=== PATIENT | female | born 1975 | race Caucasian/White ===

== ENCOUNTER 2019-03-10 20:22 | Emergency (ER) | payer OTHER ==
[~2019-03-10] VITALS: Ht 175.3 cm; Wt 7038.2 kg
[~2019-03-10 20:22] MED LIST: [UNRECOGNIZED DRUG - OTHER] PO
[2019-03-10] MEDS ORDERED: PRENATAL FORMU1 EAC2 PO (20:58)
[2019-03-10] MEDS ORDERED: MACROBID 100 M100 MG PO (23:33)
== END 2019-03-10 23:56 | disposition home or self-care (01) ==
LOC: ED 20:22
DX: O20.0 Threatened abortion (principal); O23.41 Unspecified infection of urinary tract in pregnancy, first trimester; Z3A.01 Less than 8 weeks gestation of pregnancy
CPT/HCPCS: 36415; 80053; 81001; 84702; 85025; 86900; 86901; 96372; 99284-25; J2790

== ENCOUNTER 2020-08-23 18:44 | Emergency (ER) | payer OTHER ==
[~2020-08-23] VITALS: Ht 175.3 cm; Wt 72.8 kg
[~2020-08-23 18:44] MED LIST changes: +DOXYCYCLINE HY100 MG PO; +IRON325 M1 PO; +MACROBID 100 M100 MG PO; +NORCO 5-325 TA1 EACH PO; +PRENATAL FORMU1 EAC2 PO
--- NOTE | 2020-08-24 11:32 | EKG ---
[facility] [address] [place] [address] Signed Normal sinus rhythm Normal ECG No previous ECGs available Confirmed by JEANIE GREENBERG MD ([id number]) on 08/24/2020 11:32:09 AM Electronically Signed By: JEANIE GREENBERG MD 08/24/20 1132 PATIENT NAME: WEN JETT Electrocardiogram DATE OF : 77 PHYSICIAN: JEANIE GREENBERG MD REPORT #: [id number] REPORT IS CONFIDENTIAL AND NOT TO BE RELEASED WITHOUT AUTHORIZATION
== END 2020-08-23 21:30 | disposition home or self-care (01) ==
LOC: ED 18:44
DX: R00.2 Palpitations (principal); Z88.5 Allergy status to narcotic agent; Z88.6 Allergy status to analgesic agent; Z88.8 Allergy status to other drugs, medicaments and biological substances
CPT/HCPCS: 80053; 83735; 84484; 84703; 85025; 93005; 93010; 99285-25

== ENCOUNTER 2020-08-27 06:27 | Emergency (ER) | payer OTHER ==
[~2020-08-27] VITALS: Ht 175.3 cm; Wt 86.0 kg
--- OUTSIDE RECORDS SUMMARY | 2020-08-27 06:30 | XMS ---
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 Balaji has no Care Guidelines for this patient. Anjelica VISIT COUNT (12 MO.) 2 [facility] TOTAL 2 NOTE: Visits indicate total known visits. ED/[facility] VISIT TRACKING (12 MO.) [facility] COMPLAINT: - NAUSEA, HEART PALPITATIONS, CRAMPED LEGS, CHILLS 08/23/2020 18:44 [facility] [place] TYPE: Emergency COMPLAINT: - IRREGULAR HEART BEAT INPATIENT VISIT TRACKING (12 MO.) No inpatient visits to display in this time frame [email or web address]
[2020-08-27] MEDS ORDERED: MAPAP500 MG PO (06:52)
[2020-08-27] MEDS ORDERED: ONDANSETRON ODT8 MG PO (08:02)
--- NOTE | 2020-08-28 12:36 | EKG ---
[facility] [address] [place], [place] [address] Signed Normal sinus rhythm Normal ECG When compared with ECG of 23-AUG-2020 18:58, No significant change was found Confirmed by RAULITO HASKINS DO ([id number]) on 08/28/2020 12:35:56 PM Electronically Signed By: RAULITO HASKINS DO 08/28/20 1236 PATIENT NAME: WEN JETT Electrocardiogram DATE OF : 77 PHYSICIAN: RAULITO HASKINS DO REPORT #: [id number] REPORT IS CONFIDENTIAL AND NOT TO BE RELEASED WITHOUT AUTHORIZATION
== END 2020-08-27 08:15 | disposition home or self-care (01) ==
LOC: ED 06:27
DX: I49.3 Ventricular premature depolarization (principal); Z88.8 Allergy status to other drugs, medicaments and biological substances; Z88.5 Allergy status to narcotic agent; Z88.6 Allergy status to analgesic agent
CPT/HCPCS: 80053; 81001; 83735; 84443; 84484; 85025; 93005; 93010; 99285-25

== ENCOUNTER 2023-02-22 20:58 | Emergency (ER) | payer OTHER ==
[~2023-02-22] VITALS: Ht 175.3 cm; Wt 84.8 kg
[~2023-02-22 20:58] MED LIST changes: +MAPAP500 MG PO; +ONDANSETRON ODT8 MG PO
[2023-02-22] MEDS ORDERED: OXYCODON-ACETA1 EAC2 PO (22:03)
[2023-02-22 22:23] VITALS: BP 133/82
== END 2023-02-22 22:24 | disposition home or self-care (01) ==
LOC: ED 20:58
DX: Z48.817 Encounter for surgical aftercare following surgery on the skin and subcutaneous tissue (principal); Z88.5 Allergy status to narcotic agent; Z88.6 Allergy status to analgesic agent; Z88.8 Allergy status to other drugs, medicaments and biological substances; Z79.899 Other long term (current) drug therapy
CPT/HCPCS: 99282

== ENCOUNTER 2023-05-22 00:54 | Emergency (ER) | payer OTHER ==
[~2023-05-22] VITALS: Ht 175.3 cm; Wt 91.8 kg
[~2023-05-22 00:54] MED LIST changes: +OXYCODON-ACETA1 EAC2 PO
[2023-05-22] MEDS ORDERED: methylPREDNISolone 4 MG HOME.PACK PO ONE (01:15)
[2023-05-22] MEDS ORDERED: diphenhydrAMINE HCL 50 MG CAP PO ONE (01:15)
[2023-05-22 01:27] VITALS: BP 141/77
== END 2023-05-22 01:28 | disposition home or self-care (01) ==
LOC: ED 00:54
DX: L50.9 Urticaria, unspecified (principal); Z88.8 Allergy status to other drugs, medicaments and biological substances; Z88.5 Allergy status to narcotic agent; Z88.6 Allergy status to analgesic agent; Z79.899 Other long term (current) drug therapy
CPT/HCPCS: 99282; Q0163

== ENCOUNTER 2024-11-23 10:03 | Emergency (ER) | payer OTHER ==
[~2024-11-23] VITALS: Ht 175.3 cm; Wt 85.7 kg
[2024-11-23] MEDS ORDERED: PRILOSEC OTC20 MG PO (10:47)
[2024-11-23 11:16] LABS: BASOPHILS 0.8 % (0.1-1.2); EOSINOPHILS 2.0 % (0.7-5.8); LYMPHOCYTES 18.0 % (19.3-51.7); MCH 29.6 PG (25.6-32.2); MCHC 33.8 g/dL (32.2-35.5); MCV 87.4 fL (79.4-94.8); MONOCYTES 8.7 % (4.7-12.5); NEUTROPHILS 70.1 % (34.0-71.1); RBC 4.70 M/uL (3.93-5.22)
[2024-11-23 11:26] LABS: ALT (SGPT) 30.0 U/L (14-59); AST (SGOT) 41.0 U/L (15-37); GLOMERULAR FILTRATION RATE,EST 86.0 mL/min (>60); PROTEIN, TOTAL 8.3 g/dL (6.4-8.2); UREA NITROGEN 12.0 mg/dL (7-18)
[2024-11-23 11:54] LABS: BLOOD/HGB, URINE NEGATIVE (Negative); KETONE, URINE NEGATIVE (Negative); LEUK ESTERASE, URINE NEGATIVE (negative); NITRITE, URINE NEGATIVE (negative)
[2024-11-23 12:56] VITALS: BP 143/91
== END 2024-11-23 12:59 | disposition home or self-care (01) ==
LOC: ED 10:03
PROVIDERS: Emergency Medicine
DX: R93.7 Abnormal findings on diagnostic imaging of other parts of musculoskeletal system (principal); K58.9 Irritable bowel syndrome, unspecified; Z88.5 Allergy status to narcotic agent; Z88.6 Allergy status to analgesic agent; Z88.8 Allergy status to other drugs, medicaments and biological substances; Z79.899 Other long term (current) drug therapy
CPT/HCPCS: 36415; 74177; 80053; 81003; 83690; 84703; 85025; 99284-25

== ENCOUNTER 2024-11-29 06:23 | Emergency (ER) | payer OTHER ==
[~2024-11-29] VITALS: Ht 175.3 cm; Wt 84.0 kg
[~2024-11-29 06:23] MED LIST changes: +PRILOSEC OTC20 MG PO
[2024-11-29] MEDS ORDERED: AMBIEN CR6.25 MG PO (06:55)
[2024-11-29] MEDS ORDERED: PERCOCET 5-3251 EACH PO (06:55)
[2024-11-29] MEDS ORDERED: ATIVAN1 MG PO (06:55)
[2024-11-29] MEDS ORDERED: OXYCODONE/ACETAMINOPHEN 1 TAB HOME.PACK PO ONE (07:00)
[2024-11-29] MEDS ORDERED: LORazepam 1 MG HOME.PACK PO ONE (07:00)
[2024-11-29 07:27] VITALS: BP 158/89
== END 2024-11-29 07:30 | disposition home or self-care (01) ==
LOC: ED 06:23
DX: M25.851 Other specified joint disorders, right hip (principal); M48.8X6 Other specified spondylopathies, lumbar region; Z88.8 Allergy status to other drugs, medicaments and biological substances; Z88.5 Allergy status to narcotic agent; Z88.6 Allergy status to analgesic agent
CPT/HCPCS: 99283

== ENCOUNTER 2024-12-26 18:57 | Emergency (ER) | payer OTHER ==
[~2024-12-26] VITALS: Ht 175.3 cm; Wt 82.0 kg
[~2024-12-26 18:57] MED LIST changes: +AMBIEN CR6.25 MG PO; +ATIVAN1 MG PO; +PERCOCET 5-3251 EACH PO
[2024-12-26] MEDS ORDERED: HYDROXYZINE HCL25 MG PO (19:19)
[2024-12-26] MEDS ORDERED: ZOLPIDEM TART6.25 MG PO (19:19)
[2024-12-26] MEDS ORDERED: TIZANIDINE HCL2 M1 PO (19:19)
[2024-12-26 22:54] VITALS: BP 131/74
== END 2024-12-26 22:55 | disposition home or self-care (01) ==
LOC: ED 18:57
DX: N64.4 Mastodynia (principal); Z88.8 Allergy status to other drugs, medicaments and biological substances; Z88.5 Allergy status to narcotic agent; Z88.6 Allergy status to analgesic agent; Z79.899 Other long term (current) drug therapy
CPT/HCPCS: 76642; 99283

== ENCOUNTER 2025-01-26 11:36 | Emergency (ER) | payer OTHER ==
[~2025-01-26] VITALS: Ht 175.3 cm; Wt 79.0 kg
--- NOTE | ~2025-01-26 | EKG ---
[facility] [address] [place], [place] [address] Draft EK completed, results pending confirmation PATIENT NAME: WEN JETT MINA Electrocardiogram DATE OF : 77 PHYSICIAN: PRELIMINARY REPORT #: [id number] REPORT IS CONFIDENTIAL AND NOT TO BE RELEASED WITHOUT AUTHORIZATION
--- OUTSIDE RECORDS SUMMARY | ~2025-01-26 | XMS | Continuity of Care Document ---
Demographics + + + | Address | [address] | | | [place] [address] | + + + | Preferred Language | Unknown | + + + | Marital Status | | + + + | Scientologist Affiliation | Unknown | + + + | Race | White | + + + | Ethnic Group | Not or | + + + Author + + + | Author | [facility] | + + + | Organization | [facility] | + + + | Address | [address] | | | [place] [address] | + + + | Phone | | + + + Care Team Providers + + + + | Care Circle Saw Operator Name | Role | Phone | [...] [facility] | | | | [facility] | + + + + | (no date) | OXYCODONE | [facility] | | | HCL/ACETAMINOPHEN | [facility] | + + + + | 2024-11-29 00:00 | OXYCODONE | [facility] | | | HCL/ACETAMINOPHEN | [facility] | + + + + | (no date) | DOXYCYCLINE HYCLATE | [facility] | | | | [facility] | + + + + | (no date) | FERROUS SULFATE | [facility] | | | | [facility] | + + + + | (no date) | TIZANIDINE HCL | [facility] | | | | [facility] | + + + + | 2024-11-29 00:00 | ZOLPIDEM TARTRATE | [facility] | | | | [facility] | + + + + | (no date) | HYDROCODONE | [facility] | | | BIT/ACETAMINOPHEN | [facility] | + + + + | (no date) | hydrOXYzine HCL | [facility] | | | | [facility] | + + + + Problems + + + + | date | description | facility | + + + + | 2024-11-23 00:00 | Abnormal computed | [facility] | | | tomography of spine | [facility] | + + + + | 2024-11-29 00:00 | Lytic bone lesion of hip | [facility] | | | | [facility] | + + + + | 2024-12-26 00:00 | Pain of left breast | [facility] | | | | [facility] | + + + + Procedures No [...] 98 | mg/dL | (missing) | | [facility] | 10:55:07 | [facility] | | | [...] 27 | (missing) | (missing) | | [facility] | 10:55:07 | [facility] | | [...] 4.4 | (missing) | (missing) | | [facility] | 10:55:07 | [facility] | | | [...] 132 | (missing) | (missing) | | [facility] | 10:55:07 | [facility] | | | [...]
[~2025-01-26 11:36] MED LIST changes: +HYDROXYZINE HCL25 MG PO; +TIZANIDINE HCL2 M1 PO; +ZOLPIDEM TART6.25 MG PO
[2025-01-26] MEDS ORDERED: ELIQUIS2.5 MG PO (12:07)
[2025-01-26] MEDS ORDERED: OXYCODONE HCL5 MG PO (12:08)
[2025-01-26] MEDS ORDERED: ACETAMINOPHEN500 M1 PO (12:09)
[2025-01-26] MEDS ORDERED: ONDANSETRON ODT8 MG PO (12:10)
[2025-01-26] MEDS ORDERED: [UNRECOGNIZED DRUG - OTHER] PO (12:11)
[2025-01-26 13:11] LABS: BLOOD/HGB, URINE NEGATIVE (Negative); KETONE, URINE TRACE (Negative); LEUK ESTERASE, URINE NEGATIVE (negative); NITRITE, URINE NEGATIVE (negative)
[2025-01-26 13:14] LABS: ALT (SGPT) 87.0 U/L (14-59); AST (SGOT) 134.0 U/L (15-37); GLOMERULAR FILTRATION RATE,EST 97.0 mL/min (>60); PROTEIN, TOTAL 8.3 g/dL (6.4-8.2); UREA NITROGEN 17.0 mg/dL (7-18)
[2025-01-26 13:34] LABS: BASOPHILS 0.8 % (0.1-1.2); EOSINOPHILS 1.1 % (0.7-5.8); LYMPHOCYTES 16.4 % (19.3-51.7); MCH 28.8 PG (25.6-32.2); MCHC 33.2 g/dL (32.2-35.5); MCV 86.8 fL (79.4-94.8); MONOCYTES 9.3 % (4.7-12.5); NEUTROPHILS 67.9 % (34.0-71.1); RBC 3.85 M/uL (3.93-5.22)
[2025-01-26 13:36] LABS: BACTERIA, URINE 1+ /hpf (negative); CASTS, URINE NONE SEEN \\lpf; CRYSTALS, URINE NONE SEEN (0-1+); REFLEX CULTURE, URINE No (No)
[2025-01-26 16:04] VITALS: BP 140/89
== END 2025-01-26 16:05 | disposition home or self-care (01) ==
LOC: ED 11:36
PROVIDERS: Emergency Medicine
DX: R42 Dizziness and giddiness (principal); R07.89 Other chest pain; Z88.5 Allergy status to narcotic agent; Z88.8 Allergy status to other drugs, medicaments and biological substances; Z79.01 Long term (current) use of anticoagulants; Z79.899 Other long term (current) drug therapy
CPT/HCPCS: 36415; 71045; 80053; 81001; 84484; 85025; 93005; 93010; 99285-25

== ENCOUNTER 2025-02-08 21:37 | Inpatient (IN) | payer OTHER ==
[~2025-02-08] VITALS: Ht 175.3 cm; Wt 82.1 kg
--- OUTSIDE RECORDS SUMMARY | ~2025-02-08 | XMS | Continuity of Care Document ---
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 Encounters No information. Functional Status No information. Immunizations No information. Medications + + + + | date | description | facility | + + + + | 2024-11-29 00:00 | LORAZEPAM | [facility] | | | | [facility] | + + + + | (no date) | OXYCODONE | [facility] | | | HCL/ACETAMINOPHEN | [facility] | + + + + | 2024-11-29 00:00 | OXYCODONE | [facility] | | | HCL/ACETAMINOPHEN | [facility] | + + + + | (no date) | DOXYCYCLINE HYCLATE | [facility] | | | | [facility] | + + + + | (no date) | FERROUS SULFATE | [facility] [place], [place] | | | | [facility] | + + + + | (no date) | TIZANIDINE HCL | [facility] [place] [facility] | | | | [facility] | + + + + | 2024-11-29 00:00 | ZOLPIDEM TARTRATE | [facility] [place] [place] | | | | [facility] | + + + + | (no date) | HYDROCODONE | [facility] [place] [facility] | | | BIT/ACETAMINOPHEN | [facility] | + + + + | (no date) | hydrOXYzine HCL | [facility] [place] [facility] | | | | [facility] | + + + + Problems + + + + | date | description | facility | + + + + | 2024-11-23 00:00 | Abnormal computed | [facility] [place], [place] | | | tomography of spine | [facility] | + + + + | 2024-11-29 00:00 | Lytic bone lesion of hip | [facility] | | | | [facility] | + + + + | 2024-12-26 00:00 | [facility] left breast | [facility] | | | | [facility] | + + + + Procedures No information. Results/Labs +--------+--------+ +---------+--------+---------+ | test | date | facility | value | unit | notes | +--------+--------+ +---------+--------+---------+ + + | Result panel 1 | + + + + + + + + + | Color Ur | 2024-11-23 | | YELLOW | (missing) | (missing) | | Auto | 10:25:07 | [facility] | | | | + + + + + + + + + | Result panel 2 | + + + + + +---------+ + + | Character | 2024-11-23 | | CLEAR | (missing) | (missing) | | Ur | 10:25:07 | [facility] | | | | + + + +---------+ + + + + | Result panel 3 | + + + + + + + + + | Glucose Ur | 2024-11-23 | | NEGATIVE | (missing) | (missing) | | Ql Strip | 10:25:07 | [facility] | | | | + + + + + + + + + | Result panel 4 | + + + + + + + + + | Cecy Glover | 2024-11-23 | | NEGATIVE | (missing) | (missing) | | Ql Strip | 10:25:07 | [facility] | | | | + + + + + + + + + | Result panel 5 | + + + + + + + + + | Ketones Ur | 2024-11-23 | | NEGATIVE | (missing) | (missing) | | Ql Strip | 10:25:07 | [facility] | | | | + + + + + + + + + | Result panel 6 | + + + + + +---------+ + + | Sp Gr Ur | 2024-11-23 | | 1.015 | (missing) | (missing) | | Strip | 10:25:07 | [facility] | | | | + + + +---------+ + + + + | Result panel 7 | + + + + + + + + + | Hgb Ur Ql | 2024-11-23 | | NEGATIVE | (missing) | (missing) | | Strip | 10:25:07 | [facility] | | | | + + + + + + + + + | Result panel 8 | + + + + + +-------+ + + | pH Ur Strip | 2024-11-23 | | 6.0 | (missing) | (missing) | | | 10:25:07 | [facility] | | | | + + + +-------+ + + + + | Result panel 9 | + + + + + + + + + | Prot Ur | 2024-11-23 | | NEGATIVE | (missing) | (missing) | | Strip-mCnc | 10:25:07 | [facility] | | | | + + + + + + + + + | Result panel 10 | + + + + + + + + + | | 2024-11-23 | | NORMAL | (missing) | (missing) | | Urobilinogen | 10:25:07 | [facility] | | | | | Ur [facility] Strip-mCnc | [facility] | | | | + + + + + + + + + | Result panel 11 | + + + + + + + + + | Nitrite Ur | 2024-11-23 | | NEGATIVE | (missing) | (missing) | | Ql Strip | 10:25:07 | [facility] | | | | + + + + + + + + + | Result panel 12 | + + + + + + + + + | Leukocyte | 2024-11-23 | | NEGATIVE | (missing) | (missing) | | esterase Ur | 10:25:07 | [facility] | | | | | Ql Strip [facility] | | | | + + + + + + + + + | Result panel 13 | + + + + + + + + + | Color Ur | 2024-11-23 | | YELLOW | (missing) | (missing) | | Auto | 10:25:07 | [facility] | | | | + + + + + + + + + | Result panel 14 | + + + + + +---------+ + + | Character | 2024-11-23 | | CLEAR | (missing) | (missing) | | Ur | 10:25:07 | [facility] | | | | + + + +---------+ + + + + | Result panel 15 | + + + + + + + + + | Glucose Ur | 2024-11-23 | | NEGATIVE | (missing) | (missing) | | Ql Strip | 10:25:07 | [facility] | | | | + + + + + + + + + | Result panel 16 | + + + + + + + + + | Bilruperto Glover | 2024-11-23 | | NEGATIVE | (missing) | (missing) | | Ql Strip | 10:25:07 | [facility] | | | | + + + + + + + + + | Result panel 17 | + + + + + + + + + | Ketones Ur | 2024-11-23 | | NEGATIVE | (missing) | (missing) | | Ql Strip | 10:25:07 | [facility] | | | | + + + + + + + + + | Result panel 18 | + + + + + +---------+ + + | Sp Gr Ur | 2024-11-23 | | 1.015 | (missing) | (missing) | | Strip | 10:25:07 | [facility] | | | | + + + +---------+ + + + + | Result panel 19 | + + + + + + + + + | Michelle Ur Torie | 2024-11-23 | | NEGATIVE | (missing) | (missing) | | Strip | 10:25:07 | [facility] | | | | + + + + + + + + + | Result panel 20 | + + + + + +-------+ + + | pH Ur Strip | 2024-11-23 | | 6.0 | (missing) | (missing) | | | 10:25:07 | [facility] | | | | + + + +-------+ + + + + | Result panel 21 | + + + + + + + + + | Prot Ur | 2024-11-23 | | NEGATIVE | (missing) | (missing) | | Strip-mCnc | 10:25:07 | [facility] | | | | + + + + + + + + + | Result panel 22 | + + + + + + + + + | | 2024-11-23 | | NORMAL | (missing) | (missing) | | Urobilinogen | 10:25:07 | [facility] | | | | | Ur | [facility]-m[facility]nc | [facility] | | | | + + + + + + + + + | Result panel 23 | + + + + + + + + + | Nitrite Ur | 2024-11-23 | | NEGATIVE | (missing) | (missing) | | Ql Strip | 10:25:07 | [facility] | | | | + + + + + + + + + | Result panel 24 | + + + + + + + + + | Leukocyte | 2024-11-23 | | NEGATIVE | (missing) | (missing) | | esterase Ur | 10:25:07 | [facility] | | | | | Ql Strip [facility] | | | | + + + + + + + + + | Result panel 25 | + + + + + +--------+ + + | WBC # Bld | 2024-11-23 | | 7.68 | (missing) | (missing) | | Auto | 10:55:07 | [facility] | | | | + + + +--------+ + + + + | Result panel 26 | + + + + + +--------+ + + | Lymphocytes | 2024-11-23 | | 18.0 | (missing) | (missing) | | NFr Bld | 10:55:07 | [facility] | | | | | Auto | [facility] | | | | + + + +--------+ + + + + | Result panel 27 | + + + + + +-------+ + + | Monocytes | 2024-11-23 | | 8.7 | (missing) | (missing) | | NFr Bld Auto | 10:55:07 | [facility] | | | | + + + +-------+ + + + + | Result panel 28 | + + + + + +-------+ + + | Eosinophil | 2024-11-23 | | 2.0 | (missing) | (missing) | | NFr Bld Auto | 10:55:07 | [facility] | | | | + + + +-------+ + + + + | Result panel 29 | + + + + + +-------+ + + | Basophils | 2024-11-23 | | 0.8 | (missing) | (missing) | | NFr Bld Auto | 10:55:07 | [facility] | | | | + + + +-------+ + + + + | Result panel 30 | + + + + + +--------+ + + | RBC # Bld | 2024-11-23 | | 4.70 | (missing) | (missing) | | Auto | 10:55:07 | [facility] | | | | + + + +--------+ + + + + | Result panel 31 | + + + + + +------+---------+ + | Glucose | 2024-11-23 | | 98 | mg/dL | (missing) | | SerPl[facility] | 10:55:07 | [facility] | | | | + + + +------+---------+ + + + | Result panel 32 | + + + + + +------+---------+ + | BUN | 2024-11-23 | | 12 | mg/dL | (missing) | | SerPl-mCnc | 10:55:07 | [facility] | | | | + + + +------+---------+ + + + | Result panel 33 | + + + + + +--------+---------+ + | Creat | 2024-11-23 | | 0.84 | mg/dL | (missing) | | Judi-mCrigoberto | 10:55:07 | [facility] | | | | + + + +--------+---------+ + + + | Result panel 34 | + + + + + +------+ + + | eGFRcr | 2024-11-23 | | 86 | (missing) | (missing) | | SerPlBld | 10:55:07 | [facility] | | | | | CKD-EPI 2020 | [facility] | | | | + + + +------+ + + + + | Result panel 35 | + + + + + +--------+ + + | Hgb | 2024-11-23 | | 13.9 | (missing) | (missing) | | Bld-mCnc | 10:55:07 | [facility] | | | | + + + +--------+ + + + + | Result panel 36 | + + + + + +---------+ + + | BUN/Creat | 2024-11-23 | | 14.28 | (missing) | (missing) | | SerPl | 10:55:07 | [facility] | | | | + + + +---------+ + + + + | Result panel 37 | + + + + + +-------+ + + | Sodium | 2024-11-23 | | 138 | (missing) | (missing) | | SerPl-sCnc | 10:55:07 | [facility] | | | | + + + +-------+ + + + + | Result panel 38 | + + + + + +-------+ + + | Potassium | 2024-11-23 | | 4.2 | (missing) | (missing) | | SerPl-sCnc | 10:55:07 | [facility] | | | | + + + +-------+ + + + + | Result panel 39 | + + + + + +-------+ + + | Chloride | 2024-11-23 | | 103 | (missing) | (missing) | | SerPl-sCnc | 10:55:07 | [facility] | | | | + + + +-------+ + + + + | Result panel 40 | + + + + + +------+ + + | CO2 | 2024-11-23 | | 27 | (missing) | (missing) | | [facility] | 10:55:07 | [facility] | | | | + + + +------+ + + + + | Result panel 41 | + + + + + +--------+ + + | Anion Gap | 2024-11-23 | | 12.2 | (missing) | (missing) | | SerPl | 10:55:07 | [facility] | | | | | Calculated.4 | [facility] | [facility] | | | | + + + +--------+ + + + + | Result panel 42 | + + + + + +--------+---------+ + | Calcium | 2024-11-23 | | 10.1 | mg/dL | (missing) | | SerPl-mCnc | 10:55:07 | [facility] | | | | + + + +--------+---------+ + + + | Result panel 43 | + + + + + +-------+ + + | Prot | 2024-11-23 | | 8.3 | (missing) | (missing) | | Mireya | 10:55:07 | [facility] | | | | + + + +-------+ + + + + | Result panel 44 | + + + + + +-------+ + + | Albumin | 2024-11-23 | | 4.4 | (missing) | (missing) | | Mireya | 10:55:07 | [facility] | | | | + + + +-------+ + + + + | Result panel 45 | + + + + + +-------+ + + | Globulin | 2024-11-23 | | 3.9 | (missing) | (missing) | | Ser-mCnc | 10:55:07 | [facility] | | | | | | | - | | | | | | [facility] | | | | + + + +-------+ + + + + | Result panel 46 | + + + + + +--------+ + + | Hct VFr.DF | 2024-11-23 | | 41.1 | (missing) | (missing) | | Bld Auto | 10:55:07 | [facility] | | | | + + + +--------+ + + + + | Result panel 47 | + + + + + +--------+ + + | | 2024-11-23 | | 1.13 | (missing) | (missing) | | Albumin/Glob | 10:55:07 | [facility] | | | | | SerPl | [facility] | | | | + + + +--------+ + + + + | Result panel 48 | + + + + + +-------+---------+ + | Bilirub | 2024-11-23 | | 1.0 | mg/dL | (missing) | | SerPl-mCnc | 10:55:07 | [facility] | | | | + + + +-------+---------+ + + + | Result panel 49 | + + + + + +------+ + + | AST | 2024-11-23 | | 41 | (missing) | (missing) | | SerPl-cCn | 10:55:07 | [facility] | | | | + + + +------+ + + + + | Result panel 50 | + + + + + +------+ + + | ALT | 2024-11-23 | | 30 | (missing) | (missing) | | SerPl-cCnc | 10:55:07 | [facility] | | | | + + + +------+ + + + + | Result panel 51 | + + + + + +-------+ + + | ALP | 2024-11-23 | | 132 | (missing) | (missing) | | SerPl-cCnc | 10:55:07 | [facility] | | | | + + + +-------+ + + + + | Result panel 52 | + + + + + +------+ + + | Lipase | 2024-11-23 | | 37 | (missing) | (missing) | | SerPl-cCnc | 10:55:07 | [facility] | | | | + + + +------+ + + + + | Result panel 53 | + + + + + + + + + | HCG SerPl | 2024-11-23 | | NEGATIVE | (missing) | (missing) | | Ql | 10:55:07 | [facility] | | | | + + + + + + + + + | Result panel 54 | + + + + + +--------+ + + | WBC # Bld | 2024-11-23 | | 7.68 | (missing) | (missing) | | Auto | 10:55:07 | [facility] | | | | + + + +--------+ + + + + | Result panel 55 | + + + + + +--------+ + + | RBC # Bld | 2024-11-23 | | 4.70 | (missing) | (missing) | | Auto | 10:55:07 | [facility] | | | | + + + +--------+ + + + + | Result panel 56 | + + + + + +--------+ + + | Hgb | 2024-11-23 | | 13.9 | (missing) | (missing) | | William-Elliot | 10:55:07 | [facility] | | | | + + + +--------+ + + + + | Result panel 57 | + + + + + +--------+ + + | RBC Auto | 2024-11-23 | | 87.4 | (missing) | (missing) | | | 10:55:07 | [facility] | | | | + + + +--------+ + + + + | Result panel 58 | + + + + + +--------+ + + | Hct VFr.DF | 2024-11-23 | | 41.1 | (missing) | (missing) | | Bld Auto | 10:55:07 | [facility] | | | | + + + +--------+ + + + + | Result panel 59 | + + + + + +--------+ + + | RBC Auto | 2024-11-23 | | 87.4 | (missing) | (missing) | | | 10:55:07 | [facility] | | | | + + + +--------+ + + + + | Result panel 60 | + + + + + +--------+ + + | MCH RBC Qn | 2024-11-23 | | 29.6 | (missing) | (missing) | | Auto | 10:55:07 | [facility] | | | | + + + +--------+ + + + + | Result panel 61 | + + + + + +--------+ + + | MCHC RBC | 2024-11-23 | | 33.8 | (missing) | (missing) | | Auto-EntMCnc | 10:55:07 | [facility] | | | | + + + +--------+ + + + + | Result panel 62 | + + + + + +-------+ + + | Platelet # | 2024-11-23 | | 229 | (missing) | (missing) | | Bld Auto | 10:55:07 | [facility] | | | | + + + +-------+ + + + + | Result panel 63 | + + + + + +--------+ + + | Neutrophils | 2024-11-23 | | 70.1 | (missing) | (missing) | | NFr Bld | 10:55:07 | [facility] | | | | | Auto | [facility] | | | | + + + +--------+ + + + + | Result panel 64 | + + + + + +--------+ + + | Lymphocytes | 2024-11-23 | | 18.0 | (missing) | (missing) | | NFr Bld | 10:55:07 | [facility] | | | | | Auto | [facility] | | | | + + + +--------+ + + + + | Result panel 65 | + + + + + +-------+ + + | Monocytes | 2024-11-23 | | 8.7 | (missing) | (missing) | | NFr Bld Auto | 10:55:07 | [facility] | | | | + + + +-------+ + + + + | Result panel 66 | + + + + + +-------+ + + | Eosinophil | 2024-11-23 | | 2.0 | (missing) | (missing) | | NFr Bld Auto | 10:55:07 | [facility] | | | | + + + +-------+ + + + + | Result panel 67 | + + + + + +-------+ + + | Basophils | 2024-11-23 | | 0.8 | (missing) | (missing) | | NFr Bld Auto | 10:55:07 | [facility] | | | | + + + +-------+ + + + + | Result panel 68 | + + + + + +--------+ + + | MCH RBC Qn | 2024-11-23 | | 29.6 | (missing) | (missing) | | Auto | 10:55:07 | [facility] | | | | + + + +--------+ + + + + | Result panel 69 | + + + + + +--------+ + + | MCHC RBC | 2024-11-23 | | 33.8 | (missing) | (missing) | | Auto-EntMCnc | 10:55:07 | [facility] | | | | + + + +--------+ + + + + | Result panel 70 | + + + + + +------+---------+ + | Glucose | 2024-11-23 | | 98 | mg/dL | (missing) | | SerPl-mCnc | 10:55:07 | [facility] | | | | + + + +------+---------+ + + + | Result panel 71 | + + + + + +------+---------+ + | BUN | 2024-11-23 | | 12 | mg/dL | (missing) | | SerPl-mCnc | 10:55:07 | [facility] | | | | + + + +------+---------+ + + + | Result panel 72 | + + + + + +--------+---------+ + | Creat | 2024-11-23 | | 0.84 | mg/dL | (missing) | | SerPl-mCnc | 10:55:07 | [facility] | | | | + + + +--------+---------+ + + + | Result panel 73 | + + + + + +------+ + + | eGFRcr | 2024-11-23 | | 86 | (missing) | (missing) | | SerPlBld | 10:55:07 | [facility] | | | | | CKD-EPI 2020 [facility] | | | | + + + +------+ + + + + | Result panel 74 | + + + + + +---------+ + + | BUN/Creat | 2024-11-23 | | 14.28 | (missing) | (missing) | | SerPl | 10:55:07 | [facility] | | | | + + + +---------+ + + + + | Result panel 75 | + + + + + +-------+ + + | Sodium | 2024-11-23 | | 138 | (missing) | (missing) | | SerPl-sCnc | 10:55:07 | [facility] | | | | + + + +-------+ + + + + | Result panel 76 | + + + + + +-------+ + + | Potassium | 2024-11-23 | | 4.2 | (missing) | (missing) | | SerPl-sCnc | 10:55:07 | [facility] | | | | + + + +-------+ + + + + | Result panel 77 | + + + + + +-------+ + + | Chloride | 2024-11-23 | | 103 | (missing) | (missing) | | SerPl-sCnc | 10:55:07 | [facility] | | | | + + + +-------+ + + + + | Result panel 78 | + + + + + +-------+ + + | Platelet # | 2024-11-23 | | 229 | (missing) | (missing) | | Bld Auto | 10:55:07 | [facility] | | | | + + + +-------+ + + + + | Result panel 79 | + + + + + +------+ + + | CO2 | 2024-11-23 | | 27 | (missing) | (missing) | | [facility] | 10:55:07 | [facility] | | | | + + + +------+ + + + + | Result panel 80 | + + + + + +--------+ + + | Anion Gap | 2024-11-23 | | 12.2 | (missing) | (missing) | | Ser[facility] | 10:55:07 | [facility] | | | | | Calculated.4 | [facility] | | | | + + + +--------+ + + + + | Result panel 81 | + + + + + +--------+---------+ + | Calcium | 2024-11-23 | | 10.1 | mg/dL | (missing) | | [facility]i-Elliot | 10:55:07 | [facility] | | | | + + + +--------+---------+ + + + | Result panel 82 | + + + + + +-------+ + + | Prot | 2024-11-23 | | 8.3 | (missing) | (missing) | | [facility]-mCrigoberto | 10:55:07 | [facility] | | | | + + + +-------+ + + + + | Result panel 83 | + + + + + +-------+ + + | Albumin | 2024-11-23 | | 4.4 | (missing) | (missing) | | [facility] | 10:55:07 | [facility] | | | | + + + +-------+ + + + + | Result panel 84 | + + + + + +-------+ + + | Globulin | 2024-11-23 | | 3.9 | (missing) | (missing) | | [facility] | 10:55:07 | [facility] | | | | + + + +-------+ + + + + | Result panel 85 | + + + + + +--------+ + + | | 2024-11-23 | | 1.13 | (missing) | (missing) | | Albumin/Glob | 10:55:07 | [facility] | | | | + + + +--------+ + + + + | Result panel 86 | + + + + + +-------+---------+ + | Bilirub | 2024-11-23 | | 1.0 | mg/dL | (missing) | | [facility] | 10:55:07 | [facility] | | | | + + + +-------+---------+ + + + | Result panel 87 | + + + + + +------+ + + | AST | 2024-11-23 | | 41 | (missing) | (missing) | | [facility] | 10:55:07 | [facility] | | | | + + + +------+ + + + + | Result panel 88 | + + + + + +------+ + + | ALT | 2024-11-23 | | 30 | (missing) | (missing) | | [facility] | 10:55:07 | [facility] | | | | + + + +------+ + + + + | Result panel 89 | + + + + + +--------+ + + | Neutrophils | 2024-11-23 | | 70.1 | (missing) | (missing) | | NFr Bld | 10:55:07 | [facility] | | | | | Auto [facility] | | | | + + + +--------+ + + + + | Result panel 90 | + + + + + +-------+ + + | ALP | 2024-11-23 | | 132 | (missing) | (missing) | | [facility] [facility] 10:55:07 | [facility] | [facility] | | | [facility] | | | | + + + +-------+ + + + + | Result panel 91 | + + + + + +------+ + + | Lipase | 2024-11-23 | | 37 | (missing) | (missing) | | SerPl-cCnc | 10:55:07 | [facility] | | | | + + + +------+ + + + + | Result panel 92 | + + + + + + + + + | HCG SerPl | 2024-11-23 | | NEGATIVE | (missing) | (missing) | | Ql | 10:55:07 | [facility] | | [facility] | | | | + + + + + + + Social History +--------+ + + | date | description | facility | +--------+ + + Vital Signs + + + +---------+ | date | measurement | value | units | + + + +---------+ | 2024-11-23 00:00 | BMI | 27.9 | kg/m2 | + + + +---------+ | 2024-11-23 00:00 | BP_diastolic | 91 | mmHg | + + + +---------+ | 2024-11-23 00:00 | BP_systolic | 143 | mmHg | + + + +---------+ | 2024-11-23 00:00 | heart_rate | 85 | /min | + + + +---------+ | 2024-11-23 00:00 | height_metric | 175.26 | cm | + + + +---------+ | 2024-11-23 00:00 | height_standard | 69 | in | + + + +---------+ | 2024-11-23 00:00 | o2_saturation | 98 | % | + + + +---------+ | 2024-11-23 00:00 | respiration_rate | 16 | /min | + + + +---------+ | 2024-11-23 00:00 | | 98.3 | F | | | temperature_standar | | | | | d | | | + + + +---------+ | 2024-11-23 00:00 | weight_metric | 85.701 | kg | + + + +---------+ | 2024-11-23 00:00 | weight_standard | 188.937 | lb | + + + +---------+ | 2024-11-29 00:00 | BMI | 27.3 | kg/m2 | + + + +---------+ | 2024-11-29 00:00 | BP_diastolic | 89 | mmHg | + + + +---------+ | 2024-11-29 00:00 | BP_systolic | 158 | mmHg | + + + +---------+ | 2024-11-29 00:00 | heart_rate | 88 | /min | + + + +---------+ | 2024-11-29 00:00 | height_metric | 175.26 | cm | + + + +---------+ | 2024-11-29 00:00 | height_standard | 69 | in | + + + +---------+ | 2024-11-29 00:00 | o2_saturation | 96 | % | + + + +---------+ | 2024-11-29 00:00 | respiration_rate | 16 | /min | + + + +---------+ | 2024-11-29 00:00 | | 97.8 | F | | | temperature_standar | | | | | d | | | + + + +---------+ | 2024-11-29 00:00 | weight_metric | 84 | kg | + + + +---------+ | 2024-11-29 00:00 | weight_standard | 185.187 | lb | + + + +---------+ | 2024-12-26 00:00 | BMI | 26.7 | kg/m2 | + + + +---------+ | 2024-12-26 00:00 | BP_diastolic | 74 | mmHg | + + + +---------+ | 2024-12-26 00:00 | BP_systolic | 131 | mmHg | + + + +---------+ | 2024-12-26 00:00 | heart_rate | 84 | /min | + + + +---------+ | 2024-12-26 00:00 | height_metric | 175.26 | cm | + + + +---------+ | 2024-12-26 00:00 | height_standard | 69 | in | + + + +---------+ | 2024-12-26 00:00 | o2_saturation | 98 | % | + + + +---------+ | 2024-12-26 00:00 | respiration_rate | 17 | /min | + + + +---------+ | 2024-12-26 00:00 | | 98.3 | F | | | temperature_standar | | | | | d | | | + + + +---------+ | 2024-12-26 00:00 | weight_metric | 82.001 | kg | + + + +---------+ | 2024-12-26 00:00 | weight_standard | 180.781 | lb | + + + +---------+"
--- OUTSIDE RECORDS SUMMARY | ~2025-02-08 | XMS | Continuity of Care Document ---
Demographics + + + | Address | [address] | | | [place] [address] | + + + | Preferred Language | Unknown | + + + | Marital Status | | + + + | Yarsanism Affiliation | Unknown | + + + | Race | White | + + + | Ethnic Group | Not or | + + + Author + + + | Author | [facility] | + + + | Organization | [facility] | + + + | Address | [address] | | | [place] [address] | + + + | Phone | | + + + Care Team Providers + + + + | Care Numerical Control Tool Programmer Name | Role | Phone | + [...] [facility] | | | [facility] | + + + + | (no date) | OXYCODONE | [facility] | | | HCL/ACETAMINOPHEN | [facility] | + + + + | 2024-11-29 00:00 | OXYCODONE | [facility] | | | HCL/ACETAMINOPHEN | [facility] | + + + + | (no date) | DOXYCYCLINE HYCLATE | [facility] | | | | [facility] | + + + + | (no date) | FERROUS SULFATE | [facility] | | | | [facility] | + + + + | (no date) | TIZANIDINE HCL | [facility] | | | | [facility] | + + + + | 2024-11-29 00:00 | ZOLPIDEM TARTRATE | [facility] | | | | [facility] | + + + + | (no date) | HYDROCODONE | [facility] | | | BIT/ACETAMINOPHEN | [facility] | + + + + | (no date) | hydrOXYzine HCL | [facility] | | | | [facility] | + + + + Problems + + + + | date | description | facility | + + + + | 2024-11-23 00:00 | Abnormal computed | [facility] | | | tomography of spine | [facility] | + + + + | 2024-11-29 00:00 | Lytic bone lesion of hip | [facility] | | | | [facility] | + + + + | 2024-12-26 00:00 | Pain of left breast | [facility] | | | | [facility] | + + + + Procedures [...] 98 | mg/dL | (missing) | | [facility] | 10:55:07 | [facility] | | | [...] 27 | (missing) | (missing) | | [facility] | 10:55:07 | [facility] | | | [...] 4.4 | (missing) | (missing) | | [facility] | 10:55:07 | [facility] | | | [...] 132 | (missing) | (missing) | | [facility] | 10:55:07 | [facility] | | | [...]
[~2025-02-08 21:37] MED LIST changes: +ACETAMINOPHEN500 M1 PO; +ELIQUIS2.5 MG PO; +OXYCODONE HCL5 MG PO; +SENOKOT8.6 MG PO
[2025-02-08] MEDS ORDERED: HYDROmorphone HCL 1 MG/ML SYR IV PRN (23:45)
[2025-02-09] VITALS (15 sets, daily range): BP systolic 120–146; BP diastolic 62–85
[2025-02-09 00:32] LABS: BASOPHILS 0.2 % (0.1-1.2); EOSINOPHILS 0.1 % (0.7-5.8); LYMPHOCYTES 10.0 % (19.3-51.7); MCH 28.1 PG (25.6-32.2); MCHC 32.2 g/dL (32.2-35.5); MCV 87.2 fL (79.4-94.8); MONOCYTES 6.4 % (4.7-12.5); NEUTROPHILS 80.2 % (34.0-71.1); RBC 2.74 M/uL (3.93-5.22)
[2025-02-09 00:47] LABS: ALT (SGPT) 80.0 U/L (14-59); AST (SGOT) 92.0 U/L (15-37); GLOMERULAR FILTRATION RATE,EST 81.0 mL/min (>60); PROTEIN, TOTAL 7.0 g/dL (6.4-8.2); UREA NITROGEN 15.0 mg/dL (7-18)
[2025-02-09] MEDS ORDERED: LIDOCAINE HCL 4% 1 EACH PATCH TD ONE (01:30)
[2025-02-09] MEDS ORDERED: TRANEXAMIC ACID IN NACL,ISO-OS 1,000 MG/100 ML PIGGYBACK IV ONE (01:45)
[2025-02-09] MEDS ORDERED: HYDROmorphone HCL 1 MG/ML SYR IV PRN (02:00)
[2025-02-09] MEDS ORDERED: ACETAMINOPHEN 325 MG TAB PO PRN (02:00)
[2025-02-09 02:27] LABS: ABO A
[2025-02-09 02:28] LABS: ANTIBODY SCREEN NEGATIVE; IS CROSSMATCH COMPATIBLE; RH NEGATIVE
--- NOTE | 2025-02-09 04:19 | NUR ---
FIRST UNIT OF PRBC STARTED. PT SITTING UP IN BED, WATCHING TV, STATES PAIN IS LESS AFTER DILAUDID. RATES IT 4/10 IN CHEST BY CHEST TUBE.
--- NOTE | 2025-02-09 05:00 | NUR ---
PT CALLED WITH NEED TO VOID, UP TO BSC USING FWW AND 2PA, PT DID REPORT SHE WAS DIZZY AND LIGHTHEADED WITH GETTING UP AND MOVING, SHE DOES STATE THIS WAS GOING ON AT HOME PRIOR TO YESTERDAY WELL. HR WENT FROM 90'S UP TO 129 WITH GETTING UP, QUICKLY BACK DOWN TO 90'S ONCE SHE SAT DOWN.
--- NOTE | 2025-02-09 06:45 | NUR ---
PT CALLS FOR REPOSITIONING, BOOSTED UP IN BED, NO OTHER REQUESTS. BLOOD CONTINUES INFUSING.
--- NOTE | 2025-02-09 06:51 | NUR ---
PT ARRIVES TO CCU ROOM A26, ADMITTED FOR A HEMOPNEUMOTHORAX AFTER DIFFICULT PORT PLACEMENT YESTERDAY. SHE ARRIVES AWAKE AND ALERT, AT SIDE. SHE IS ON 2L BUT SATS 100%, O2 REMOVED BY RT. SHE HAS A CHEST TUBE IN TO GRAVITY, DRY SEAL. EMPTIED AT BY ER NURSE ONCE PT GET SIN BED, 365 DARK RED DRAINAGE EMPTIED. PLAN OF CARE DISCUSSED, INCLUDING PLAN TO TRANSFUSE SOME BLOOD AND PATIENT IS AGREEABLE.
[2025-02-09 07:39] LABS: BASOPHILS 0.3 % (0.1-1.2); EOSINOPHILS 0.2 % (0.7-5.8); LYMPHOCYTES 10.5 % (19.3-51.7); MCH 28.9 PG (25.6-32.2); MCHC 32.5 g/dL (32.2-35.5); MCV 89.0 fL (79.4-94.8); MONOCYTES 9.5 % (4.7-12.5); NEUTROPHILS 75.5 % (34.0-71.1); RBC 3.01 M/uL (3.93-5.22)
[2025-02-09 07:55] LABS: ALT (SGPT) 67.0 U/L (14-59); AST (SGOT) 78.0 U/L (15-37); GLOMERULAR FILTRATION RATE,EST 91.0 mL/min (>60); PROTEIN, TOTAL 6.7 g/dL (6.4-8.2); UREA NITROGEN 13.0 mg/dL (7-18)
[2025-02-09] MEDS ORDERED: OLANZAPINE2.5 MG PO (08:13)
[2025-02-09] MEDS ORDERED: OXYCODONE HCL5 M3 PO (08:14)
--- NOTE | 2025-02-09 08:24 | NUR ---
2ND UNIT OF PRBCs STARTED AT 0812 AT 120 ML/HR FOR THE FIRST 30 ML OF BLOOD INTO RIGHT AC 22 G. PT TOLERATING WELL THUS FAR. PT UP TO CHAIR FOR BREAKFAST AND EATING WELL, REGULAR DIET. PT VOIDS TO BSC PRIOR. PT REPORTS SHE CAN MOVE A LITTLE EASIER TODAY THAN YESTERDAY, STILL SOME SHORTNESS OF BREATH WITH ACTIVITY OR TALKING. LUNGS ARE CLEAR ON LEFT SIDE, RIGHT SIDE LOWER AREAS DIM. CHEST TUBE PRESENT DRAINING BLOODY DRAINAGE INTO [facility] DRY SEAL CHEST DRAIN. FLUID DRAINING IS SEROSANG. 15 MIN CHECK COMPLETE AND BLOOD INFUSION RATE INCRASED TO 150 ML/HR.
[2025-02-09] MEDS ORDERED: LIDOCAINE HCL 4% 1 EACH PATCH TD SCH (09:00)
--- NOTE | 2025-02-09 09:12 | NUR ---
DR. GOODMAN IN TO SEE PATIENT AND DISCUSS PLAN OF CARE. PT REMAINS UP IN CHAIR. PT DID RECEIVE PRN DILAUDID AND STATES THIS IS HELPING HER PAIN. CHEST TUBE DRAINING SEROSANGINOUS DRAINAGE STILL.
[2025-02-09] MEDS ORDERED: PANTOPRAZOLE SODIUM 40 MG TABEC PO SCH (09:33)
[2025-02-09] MEDS ORDERED: OXYCODONE/APAP 5/325 TAB PO PRN (09:45)
[2025-02-09] MEDS ORDERED: AZELASTINE137 MCG/0. NAS (10:57)
[2025-02-09] MEDS ORDERED: NASONEX 24HR AL17 ML NAS (10:58)
[2025-02-09] MEDS ORDERED: FENTANYL1 EACH TD (10:59)
[2025-02-09] MEDS ORDERED: COLACE100 MG PO (10:59)
[2025-02-09] MEDS ORDERED: ONDANSETRON ODT4 MG PO (11:00)
--- NOTE | 2025-02-09 11:01 | NUR ---
MED REC COMPLETE
[2025-02-09 12:11] LABS: MCH 28.7 PG (25.6-32.2); MCHC 32.6 g/dL (32.2-35.5); MCV 88.1 fL (79.4-94.8); RBC 3.69 M/uL (3.93-5.22)
[2025-02-09 12:33] LABS: BANDS, MANUAL DIFF 2; LYMPHOCYTES, MANUAL DIFF 19; MONOCYTES, MANUAL DIFF 4; NEUTROPHILS, MANUAL DIFF 75
--- NOTE | 2025-02-09 13:42 | NUR ---
PT SBA WITH FWW TO BATHROOM AND BACK PT BED. PT RESTING IN BED WITH CALL LIGHT WITHIN REACH, BEDRAILS UP FOR SAFETY.
--- NOTE | 2025-02-09 14:51 | NUR ---
PATIENT CALLS AND ASKS FOR PRN DILAUDID FOR 6/10 BACK PAIN. UP TO BATHROOM TO VOID. PT THEN BACK TO BED TO REST. IS GIVEN TO PATIENT AND BEST EFFORT IS 1250 ML. PT ON ROOM AIR WITH SP02 95%. PT'S MOTHER IN ROOM WITH HER AT THIS TIME.
[2025-02-09] MEDS ORDERED: ALBUTEROL SULFATE 0.083% 3 ML VIAL INH PRN (15:15)
--- NOTE | 2025-02-09 17:41 | NUR ---
PATIENT BACK UP TO BATHROOM TO VOID AND NOW INTO CHAIR TO EAT DINNER. PT HAS BEEN OFF OXYGEN SINCE AROUND 1200. PT'S AND MOTHER IN ROOM AND ATTENTIVE TO PATIENT. SP02 IS 97% ON ROOM AIR. LUNG SOUNDS REMAIN CLEAR WITH DIMNESS HEARD OVER MID TO LOWER RIGHT LUNG BASE. CHEST TUBE REMAINS INTACT WITH CHG DRESSING OVER TOP. PT REPORTS FEELING MUCH IMPROVED OVERALL AND DENIES DIZZYNESS OR LIGHTHEADEDNESS, BOTH OF WHICH WERE SYMPTOMS YESTERDAY. PAIN UNDER CONTROL WIHT PRN OXYCODONE AND PRN DILAUDID, PLUS PT HAS A FENTANYL PATCH ON RIGHT SHOULDER THAT IS DUE TO BE CHANGED TOMORROW. OKAY PER DR. GOODMAN TO CHANGE THIS HERE INSTEAD OF HER BRINGING ONE IN. PT HOPEFUL TO GET A GOOD NIGHT SLEEP TONIGHT. CONTINUE TO MONITOR.
--- NOTE | 2025-02-09 18:38 | NUR ---
PATIENT CALLS RN INTO ROOM AND STATES HER IS HAVING INCREASED PAIN IN RIGHT SIDE NEAR CHEST TUBE INSERTION SITE, DESCRIBING IT A BURNING AND SHARPNESS. ASSESSED AREA AND NO CREPITUS FELT, TUBE APPEARS IN SAME POSITION. DOWNSTREAM THE TUBING HAD COILED AND WAS KINKING ITSELF OFF. IMMEDIATELY UNKINKED TUBING AND STRAIGHTENED OUT THE LINE. PATIENT REPORTED AFTER LESS THAN 1 MINUTE THAT THE BURNING WAS IMPROVING. PT STILL OVERALL MORE PAINFUL AND DESIRING TO GO BACK TO BED. NOW IN BED RESTING AND WILL LET THIS RN KNOW IF SHE NEEDS DILAUDID FOR BREAKTHROUGH PAIN.
--- NOTE | 2025-02-09 19:40 | NUR ---
REPORT RECEIVED FROM EDIS CASH. PT IS AWAKE IN BED WITH MOM IN ROOM. C/O BACK PAIN. ICE PACK PROVIDED TO LOWER BACK AND PT STATES SHE WILL ASK FOR MORE PAIN MEDICATION WHEN SHE FEELS LIKE SHE NEEDS IT AGAIN. CHEST TUBE IN PLACE TO GRAVITY DRAIN.
--- NOTE | 2025-02-09 20:05 | NUR ---
PT ASSISTED UP TO BATHROOM TO VOID, SHE WAS STEADY ON FEET, STATES SHE FEELS "LOOPY" FROM THE PAIN MEDICATION BUT MOVES SLOW AND WITH AWARENESS. SHE VOIDED 200 ML LIGHT URINE.
--- NOTE | 2025-02-09 20:49 | NUR ---
ASSESSMENT AND HS CARES DONE. PT HAS NO REQUEST AT THIS TIME, MOTHER STILL IN ROOM WITH PT AND CHEST TUBE DRAINING SCANT AMT OF RED DRAINAGE.
[2025-02-09] MEDS ORDERED: POLYETHYLENE GLYCOL 3350 1 PACKET PO SCH (21:00)
[2025-02-09] MEDS ORDERED: SENNOSIDES/DOCUSATE 1 EA TAB PO SCH (21:00)
[2025-02-09] MEDS ORDERED: LIDOCAINE PATCH REMOVAL 1 EA TD SCH ×2 (21:00)
--- NOTE | 2025-02-09 21:59 | NUR ---
PT CALLS FOR ASSISTANCE UP TO BATHROOM TO VOID 300ML, BACK TO BED. CONTINUES TO REPORT LOWER BACK PAIN, STATES THE PAIN MEDICAITON HELPS WITH THE UPPER BACK PAIN BUT IT DID NOT TOUCH THE LOWER BACK PAIN. SHE DOES STATE THE ICE HELPED A LITTLE. WAFFLE MATTRESS OFFERED AND SHE DOES WANT TO TRY THAT THE NEXT TIME SHE GETS UP. SHE ALSO THINKS THAT THE BACK PAIN WILL SUBSIDE AFTER SHE HAS A BOWEL MOVEMENT. DENIES PAIN MEDICATION AT THIS TIME BUT STATES SHE WILL CALL IF SHE DOES WANT SOME. MOTHER IN ROOM.
[2025-02-09] MEDS ORDERED: MORPHINE SULFATE 4 MG/ML VIAL IV PRN (23:15)
--- NOTE | 2025-02-09 23:24 | NUR ---
PT ASSISTED UP TO BATHROOM TO VOID, BACK TO BED. WAFFLE MATTRESS PLACED FOR COMFORT, PT HAVING BACK PAIN. C/O NAUSEA, CALL TO DR GOODMAN TO REQUEST NAUSEA MEDICATION AND TO TRY A DIFFERENT PAIN MED PT DOESNT LIKE HOW DILAUDID MAKES HER FEEL WELL SHE IS STILL HAVING THE LOWER BACK PAIN. ORDER GIVEN FOR MEDS WELL TO CLAMP CHEST TUBE IN AM AND DO AN XRAY AN HOUR AFTERWARDS. IN TO UPDATE PT, SHE IS TEARFUL, STATES "ITS JUST SO HARD".
--- NOTE | 2025-02-10 00:52 | NUR ---
ASSISTED PT TO BR. PT AMBULATED W/ SBA AND FWW. VOIDS WNL. NO OTHER NEEDS OR CONCERNS AT THIS TIME. CALL LIGHT WITHIN REACH.
--- NOTE | 2025-02-10 02:12 | NUR ---
PT CALLS FOR HELP UP TO BATHROOM TO VOID, INTO BR WITH SBA AND FWW, THEN BACK TO SIT AT EDGE OF THE BED FOR A FEW MINUTES AND THEN BACK TO LIE DOWN TO GET SOME SLEEP. HAS NOT GOTTEN MUCH SLEEP YET, STATES "I TOOK A COUPLE LITTLE CAT NAPS HERE AND THERE." SHE REPORTS PAIN IS BACK IS MORE TOLERABLE WITH WAFFLE MATTRESS, CONTINUES TO DENY NEED FOR FURTHER PAIN MEDICATION.
--- NOTE | 2025-02-10 04:01 | NUR ---
PT CALLS TO USE BATHROOM, ASSISTED UP TO VOID, BACK TO BED. STATES SHE WAS WOKEN UP BY A SHARP PAIN IN CHEST TUBE INSERTION SITE, ASSESSMENT DONE, NO CHANGES NOTED, CHEST TUBE IN PLACE, DRAINING AND NOT KINKED. 1MG IV MORPHINE GIVEN WITH 4MG IV ZOFRAN.
[2025-02-10 04:03] VITALS: BP 135/78
--- NOTE | 2025-02-10 05:46 | NUR ---
PT UP BATHROOM. STATES SHE WAS SLEEPING AND WOKE UP TO SHARP STABBING PAINS IN HER RIGHT BREAST. SHE DOES STATE THAT THE MORPHINE HELPED WITH HER BACK PAIN AND NECK PAIN. BACK TO BED, NO REQUESTS, CHEST TUBE PATENT/DRAINING SCANT DARK RED FLUID.
--- NOTE | 2025-02-10 07:06 | NUR ---
PT ASSISTED TO BR, SBA W/ FWW. VOIDS WNL. SITTING EOB FOR LAB DRAW. CALL LIGHT WITHIN REACH.
[2025-02-10 07:13] LABS: BASOPHILS 0.5 % (0.1-1.2); EOSINOPHILS 1.0 % (0.7-5.8); LYMPHOCYTES 22.8 % (19.3-51.7); MCH 28.9 PG (25.6-32.2); MCHC 32.2 g/dL (32.2-35.5); MCV 89.7 fL (79.4-94.8); MONOCYTES 9.5 % (4.7-12.5); NEUTROPHILS 59.8 % (34.0-71.1); RBC 4.08 M/uL (3.93-5.22)
--- NOTE | 2025-02-10 07:35 | NUR ---
CHEST TUBE CLAMPED AT THIS TIME. XRAY NOTED TO BE HERE AT 0835.
--- NOTE | 2025-02-10 08:46 | NUR ---
PT UP TO CHAIR, CHEST XRAY COMPLETED AT THIS TIME. PT CONTIOUES TO WORK ON EATTING BKF AT THIS TIME. DILAUDID .5MG SLOW IVP FOR PAIN AT THIS TIME. LINE CHANGED. NEW FENTYAL PATCH PLACED ON LT BACK SHOULDER AREA. FENTYAL PATCH FROM HOME REMOVED AND WASTED WITH TWO RN'S. PT HAS BEEN UP TO THE BATHROOM VOIDED.
[2025-02-10] MEDS ORDERED: FENTANYL 25 MCG/HR 1 EA TDSY TD SCH (09:00)
[2025-02-10 09:10] VITALS: BP 143/82
--- NOTE | 2025-02-10 09:15 | NUR ---
DR GOODMAN INTO SEE PT CHEST TUBE REMOVED. PT TOLERATED WELL. PT WASHED UP TO GO HOME ALSO DURING THIS TIME. ALL PERSONAL BELONGINGS GIVEN TO PT. LEFT SALINE LOCK IN AT THIS TIME TO PROVIDE PAIN MEDICATION IF NEEDED BEFORE LEAVING THIS AM.
--- NOTE | 2025-02-10 10:21 | NUR ---
PT TO W/C AND TRANSPORTED TO THE CAR. DRIVING AND PT HAD SEALTBELT ON. ALL PERSONAL BELONGINGS SENT WITH AND PT.
[2025-02-13] MEDS ORDERED: fentaNYL 1 EACH TDSY TD SCH (09:00)
== END 2025-02-10 10:21 | disposition home or self-care (01) | DRG 187 ==
LOC: ED 21:37 → CCU 02-09 01:43
PROVIDERS: Family Medicine; ADMIT Surgery; ATTEND Surgery
PROC: 0W9930Z Drainage of Right Pleural Cavity with Drainage Device, Percutaneous Approach (ICD-10-PCS; principal; 2025-02-08)
DX: J94.2 Hemothorax (principal); C79.9 Secondary malignant neoplasm of unspecified site; F41.9 Anxiety disorder, unspecified; K58.9 Irritable bowel syndrome, unspecified; D63.0 Anemia in neoplastic disease; C50.919 Malignant neoplasm of unspecified site of unspecified female breast; Z88.8 Allergy status to other drugs, medicaments and biological substances; Z88.5 Allergy status to narcotic agent; Z88.6 Allergy status to analgesic agent; Z79.01 Long term (current) use of anticoagulants
CPT/HCPCS: 31500; 36415; 36430; 71045; 71250; 80053; 83735; 85025; 86850; 86900; 86901; 86922; 94667; 94668; 94799; 96374; 96375; 96376; 99285-25; A9270; C1729; J1171; J2270; J2405; P9016